=== PATIENT | male | born 1990 | race Hispanic/Latino ===

== ENCOUNTER 2018-07-14 15:00 | Emergency (ER) | payer BC ==
[2018-07-14] MEDS ORDERED: Sodium Chloride 0.9% 1,000 ML IV STA (16:52)
--- NOTE | 2018-07-14 16:55 | ED PDOC ---
HPI: General Adult Chief Complaint (Provider): fever/cough/bodyaches History Per: Patient (28 y/o male here with temp of 104 yesterday here with fevers x 3 days associated with cough. NOtes now sore throat and additional complaint of headache associated with photophobia. No vomiting/nuchal rigidity described. Seen by luz marina scales and noted to have flu swab negative.) <Madiha Petty - Last Filed: 07/15/18 19:25> <Ankita Wong - Last Filed: 07/15/18 22:03> Time Seen by Provider: 07/14/18 16:53 Chief Complaint (Nursing): Cough, Cold, Congestion Past Medical History Reviewed: Historical Data, Nursing Documentation, Vital Signs Vital Signs: Last Vital Signs Temp 101.8 F H 07/14/18 15:48 Pulse 93 H 07/14/18 15:48 Resp 20 07/14/18 15:48 BP 130/81 07/14/18 15:48 Pulse Ox 98 07/14/18 15:48 - Family History Family History: States: No Known Family Hx <Madiha Petty - Last Filed: 07/15/18 19:25> Vital Signs: Last Vital Signs Temp 98.9 F 07/14/18 20:29 Pulse 90 07/14/18 20:29 Resp 17 07/14/18 20:29 BP 144/84 07/14/18 20:29 Pulse Ox 98 07/15/18 19:25 <Ankita Wong - Last Filed: 07/15/18 22:03> - Home Medications Home Medications: Ambulatory Orders Medication Instructions Recorded Acetaminophen [Acetaminophen Extra 2 tab PO Q6 PRN #24 tablet 07/14/18 Strength] Azithromycin [Zithromax] 250 mg PO DAILY #4 tab 07/14/18 Ibuprofen [Motrin Tab] 800 mg PO Q8 PRN #21 tab 07/14/18 RX: Albuterol HFA [Ventolin HFA 90 2 puff IH [id number] PRN #1 in 07/14/18 mcg/actuation (8 g)] - Allergies Allergies/Adverse Reactions: Allergies Allergy/AdvReac Type Severity Reaction Status Date / Time cefaclor [From Pending Sale To [facility]] Allergy RASH Verified 07/14/18 15:48 Review of Systems ROS Statement: Except As Marked, All Systems Reviewed And Found Negative <Madiha Petty - Last Filed: 07/15/18 19:25> Physical Exam - Reviewed Nursing Documentation Reviewed: Yes Vital Signs Reviewed: Yes - Physical Exam Appears: Positive for: Well, Non-toxic, No Acute Distress Head Exam: Positive for: ATRAUMATIC, NORMAL INSPECTION, NORMOCEPHALIC Skin: Positive for: Normal Color, Warm, DRY Eye Exam: Positive for: EOMI, Normal appearance, PERRL ENT: Positive for: Normal ENT Inspection Neck: Positive for: Normal, Painless ROM Cardiovascular/Chest: Positive for: Regular Rate, Rhythm Respiratory: Positive for: CNT, Normal Breath Sounds Gastrointestinal/Abdominal: Positive for: Normal Exam, Soft Back: Positive for: Normal Inspection Extremity: Positive for: Normal ROM Neurologic/Psych: Positive for: Alert, Oriented <Madiha Petty - Last Filed: 07/15/18 19:25> - Laboratory Results Result Diagrams: 07/14/18 17:32 07/14/18 17:32 - ECG O2 Sat by Pulse Oximetry: 98 - Progress ED Course And Treament: INFLUENZA A/B NEG RAPID STREP: NEG CXR: IMPRESSION: Right upper lobe infiltrate. Follow-up to resolution advised. MOTRIN 800MG X 1 DOSE NS 1 LITER WIDE OPEN PATIENT FEELS IMPROVED ZITHROMAX 500MG X 1 DOSE ALBUTEROL NEB X 1 DOSE IN ED <Madiha Petty - Last Filed: 07/15/18 19:25> - Laboratory Results Result Diagrams: 07/14/18 17:32 07/14/18 17:32 <Ankita Wong - Last Filed: 07/15/18 22:03> Disposition - Patient ED Disposition Is Patient to be Admitted: No - Disposition Disposition: Routine/Home Disposition Time: 19:24 <Madiha Petty - Last Filed: 07/15/18 19:25> <Ankita Wong - Last Filed: 07/15/18 22:03> - Clinical Impression Clinical Impression: Pneumonia - Disposition Condition: FAIR Prescriptions: RX: Albuterol HFA [Ventolin HFA 90 mcg/actuation (8 g)] 2 puff IH [id number] PRN #1 in PRN Reason: Cough Acetaminophen [Acetaminophen Extra Strength] 2 tab PO Q6 PRN #24 tablet PRN Reason: Fever >100.4 F Azithromycin [Zithromax] 250 mg PO DAILY #4 tab Ibuprofen [Motrin Tab] 800 mg PO Q8 PRN #21 tab PRN Reason: Fever >100.4 F Instructions: Pneumonia in Adults Forms: 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 <Ankita Wong - Last Filed: 07/15/18 22:03>
--- NOTE | 2018-07-14 17:34 | RAD ---
Date of service: 07/14/2018 HISTORY: Cough. COMPARISON: No prior. FINDINGS: LUNGS: Right upper lobe infiltrate, alveolar with air bronchograms likely acute pneumonia. PLEURA: No significant pleural effusion identified, no pneumothorax apparent. CARDIOVASCULAR: Normal. OSSEOUS STRUCTURES: No significant abnormalities. VISUALIZED UPPER ABDOMEN: Normal. OTHER FINDINGS: None. IMPRESSION: Right upper lobe infiltrate. Follow-up to resolution advised.
[2018-07-14 17:37] LABS: BASO % 0.5 % (0.0-2.0); HEMOGLOBIN 14.1 g/dL (12.0-18.0); LYMPH % 11.6 % (20.0-40.0); MEAN CELL VOLUME 81.6 fl (80.0-94.0); MEAN CORPUSCULAR HEMOGLOBIN 28.2 pg (27.0-31.0); MEAN CORPUSCULAR HGB CONC 34.6 g/dL (33.0-37.0); MEAN PLATELET VOLUME 9.3 fl (7.2-11.7); MONO # 0.6 K/uL (0.0-0.8); MONO % 6.7 % (0.0-10.0); NEUT # 7.2 K/uL (1.8-7.0); NEUT % 81.2 % (50.0-75.0); NRBC % 0.1 % (0.0-0.0); RED CELL DISTRIBUTION WIDTH 13.2 % (11.5-14.5); WHITE BLOOD COUNT 8.9 K/uL (4.8-10.8)
[2018-07-14 17:50] LABS: ALB/GLOB RATIO 1.2 (1.0-2.1); ALBUMIN 4.5 g/dL (3.5-5.0); ALT/SGPT 43 U/L (21-72); AST/SGOT 46 U/L (17-59); BLOOD UREA NITROGEN 11 mg/dl (9-20); GFR NON-AFRICAN AMERICAN > 60
[2018-07-14 17:55] LABS: VENOUS BLOOD GAS BASE EXCESS 0.8 mmol/L (0.0-2.0); VENOUS BLOOD GAS PCO2 43 mmHg (40-60); VENOUS BLOOD GAS PO2 18 mm/Hg (30-55); VENOUS BLOOD PH 7.39 (7.32-7.43)
[2018-07-14] MEDS ORDERED: Albuterol 0.083% Inhal Sol (2.5 mg/3 mL) UD INH STA (17:57)
[2018-07-14 18:05] LABS: URINE BILIRUBIN NEGATIVE (NEGATIVE); URINE BLOOD MODERATE (NEGATIVE); URINE CLARITY CLEAR (Clear); URINE COLOR YELLOW (YELLOW); URINE GLUCOSE (UA) NEG (Normal); URINE LEUKOCYTE ESTERASE NEG Leu/uL (Negative); URINE PROTEIN 100 mg/dL (NEGATIVE); URINE UROBILINOGEN 0.2-1.0 mg/dL (0.2-1.0)
[2018-07-14] MEDS ORDERED: Albuterol 0.083% Inhal Sol (2.5 mg/3 mL) UD ONE (19:21)
[2018-07-14 20:30] VITALS: BP 144/84; PULSE 90; RESP 17; TEMP 98.9
[2018-07-15 19:25] VITALS: O2SAT 98
== END 2018-07-14 20:30 | disposition home or self-care (01) ==
LOC: H.ER 15:00
DX: J18.9 Pneumonia, unspecified organism (principal)
CPT/HCPCS: 71045; 80053; 81003; 82803; 85025; 87040; 87070; 87086; 87430; 87804; 94640; 96374; 99282; J2765; J7030